=== PATIENT | female | born 1965 | race American Indian/Alaskan Native ===

== ENCOUNTER 2021-06-13 05:46 | Inpatient (IN) | payer SELFPAY ==
[2021-06-13] MEDS ORDERED: SODIUM CHLORIDE 0.9% 1000 ML 1,000 ML IV ONE ×2 (06:25→09:27)
[2021-06-13] MEDS ORDERED: ONDANSETRON 4 MG/2 ML INJ IV ONE ×2 (06:25→09:28)
[2021-06-13] MEDS ORDERED: MORPHINE 4 MG/1 ML INJ IV ONE (06:25)
[2021-06-13] MEDS ORDERED: FAMOTIDINE 20 MG/2 ML INJ IV ONE (06:38)
--- NOTE | 2021-06-13 06:42 | Emergency Department Report ---
ED Abdominal Pain HPI - General Chief Complaint: Abdominal Pain Stated Complaint: AB PAIN Time Seen by Provider: 06/13/21 06:04 Source: patient Mode of arrival: Ambulatory Limitations: No Limitations - History of Present Illness Initial Comments: 56-year-old postmenopausal female with no past medical history or previous abdominal surgeries presents to the hospital with complaints of 1 week of nausea, vomiting, and abdominal pain. Symptoms have been intermittent but worse at night. Last evening pain worsened at the right lower quadrant radiating to the back with intractable nausea, vomiting with some mild hematemesis. Patient states she also noticed blood upon wiping after urinating and is unsure if it is vaginal or urinary blood. Patient denies fever or diarrhea. Pain is currently 10/10 intensity worse with palpation and without alleviating factors and described as a fullness and tight feeling across her abdomen Severity scale (0 -10): 10 - Related Data Allergies Allergy/AdvReac Type Severity Reaction Status Date / Time No Known Allergies Allergy Verified 06/13/21 06:21 ED Review of Systems ROS: Stated complaint: AB PAIN Other details as noted in HPI Comment: All other systems reviewed and negative ED Past Medical Hx - Past Medical History Previous Medical History?: No - Surgical History Past Surgical History?: No - Social History Smoking Status: Never Smoker Substance Use Type: None ED Physical Exam - General Limitations: No Limitations - Other Other exam information: General: Moderate distress secondary to pain Head: Atraumatic Eyes: normal appearance ENT: Moist mucous membranes Neck: Normal appearance, no midline tenderness Chest: Clear to auscultation bilaterally CV: Regular rate and rhythm Abdomen: Soft, normal bowel sounds, greatest tenderness in the right upper quadrant but also tender in the right lower quadrant and epigastric area, nondistended, no rebound or guarding Back: Normal inspection Extremity: Normal inspection, full range of motion Neuro: Alert O x 3, no facial asymmetry, speech clear, no gross motor sensory deficit Psych: Appropriate behavior Skin: No rash ED Course Vital Signs 06/13/21 06/13/21 06/13/21 05:49 06:08 06:15 Temperature 98.9 F Pulse Rate 72 71 66 Respiratory 22 22 27 H Rate Blood Pressure 142/76 Blood Pressure [Left] O2 Sat by Pulse 100 99 100 Oximetry 06/13/21 06/13/21 06/13/21 06:17 06:31 06:45 Temperature 98.8 F Pulse Rate 67 99 H 71 Respiratory 30 H 31 H 15 Rate Blood Pressure 152/86 134/81 134/81 Blood Pressure 152/86 [Left] O2 Sat by Pulse 100 100 98 Oximetry 06/13/21 06/13/21 06/13/21 06:52 07:01 07:15 Temperature Pulse Rate 64 62 64 Respiratory 12 10 L 21 Rate Blood Pressure 140/74 140/74 Blood Pressure 134/81 [Left] O2 Sat by Pulse 100 96 98 Oximetry 06/13/21 06/13/21 06/13/21 07:31 07:45 08:11 Temperature Pulse Rate 70 68 Respiratory 18 13 Rate Blood Pressure 140/84 140/84 140/84 Blood Pressure [Left] O2 Sat by Pulse 97 97 94 Oximetry 06/13/21 06/13/21 06/13/21 08:15 08:31 08:45 Temperature Pulse Rate 62 63 62 Respiratory 12 14 16 Rate Blood Pressure 128/72 128/72 128/72 Blood Pressure [Left] O2 Sat by Pulse 94 91 94 Oximetry 06/13/21 09:01 Temperature Pulse Rate 59 L Respiratory 21 Rate Blood Pressure 131/77 Blood Pressure [Left] O2 Sat by Pulse 96 Oximetry - Reevaluation(s) Reevaluation #1: 06/13/21 09:50 I spoke to pt daughter in room and another daughter on the phone to explain current diagnosis and treatment. - Consultations Consultation #1: 06/13/21 09:41 Dr Grover surgeon consulted, will evaluate for possible cholecystectomy if pain continues. ED Medical Decision Making - Lab Data Result diagrams: 06/13/21 07:00 06/13/21 07:00 Lab Results 06/13/21 06/13/21 06/13/21 Range/Units 06:53 07:00 07:00 WBC 6.4 (4.5-11.0) K/mm3 RBC 4.43 (3.65-5.03) M/mm3 Hgb 12.2 (10.1-14.3) gm/dl Hct 38.0 (30.3-42.9) % MCV 86 (79-97) fl MCH 28 (28-32) pg MCHC 32 (30-34) % RDW 13.9 (13.2-15.2) % Plt Count 286 (140-440) K/mm3 Lymph % (Auto) 17.7 (13.4-35.0) % [place] % (Auto) 5.3 (0.0-7.3) % Eos % (Auto) 0.1 (0.0-4.3) % Baso % (Auto) 0.4 (0.0-1.8) % Lymph # (Auto) 1.1 L (1.2-5.4) K/mm3 [place] # (Auto) 0.3 (0.0-0.8) K/mm3 Eos # (Auto) 0.0 (0.0-0.4) K/mm3 Baso # (Auto) 0.0 (0.0-0.1) K/mm3 Seg Neutrophils % 76.5 H (40.0-70.0) % Seg Neutrophils # 4.9 (1.8-7.7) K/mm3 Sodium 141 (137-145) mmol/L Potassium 3.7 (3.6-5.0) mmol/L Chloride 103.8 (98-107) mmol/L Carbon Dioxide 23 (22-30) mmol/L Anion Gap 18 mmol/L BUN 9 (7-17) mg/dL Creatinine 0.8 (0.6-1.2) mg/dL Estimated GFR > 60 ml/min BUN/Creatinine Ratio 11 % Glucose 156 H (65-100) mg/dL Calcium 9.5 (8.4-10.2) mg/dL Total Bilirubin 0.20 (0.1-1.2) mg/dL AST 22 (5-40) units/L ALT 22 (7-56) units/L Alkaline Phosphatase 67 (35-129) units/L Total Protein 7.3 (6.3-8.2) g/dL Albumin 4.2 (3.9-5) g/dL Albumin/Globulin Ratio 1.4 % Lipase 28 (13-60) units/L Urine Color Straw (Yellow) Urine Turbidity Clear (Clear) Urine pH 9.0 H (5.0-7.0) Ur Specific [place] 1.010 (1.003-1.030) Urine Protein <15 mg/dl (Negative) mg/dL Urine Glucose (UA) 50 (Negative) mg/dL Urine Ketones Tr (Negative) mg/dL Urine Blood Mod (Negative) Urine Nitrite Neg (Negative) Urine Bilirubin Neg (Negative) Urine Urobilinogen < 2.0 (<2.0) mg/dL Ur Leukocyte Esterase Neg (Negative) Urine WBC (Auto) 1.0 (0.0-6.0) /HPF Urine RBC (Auto) 21.0 (0.0-6.0) /HPF U Epithel Cells (Auto) 1.0 (0-13.0) /HPF Urine Mucus Few /HPF - Radiology Data Radiology results: report reviewed CT ABDOMEN AND PELVIS WITH CONTRAST INDICATION: n,v right sided abd pain. TECHNIQUE: Axial CT images were obtained through the abdomen and pelvis after 100 cc Omni [address] scans at this location are performed using CT dose reduction for ALARA by means of automated exposure control. COMPARISON: None available. FINDINGS: LOWER CHEST: No significant abnormality. LIVER: Moderate decreased attenuation characteristic for steatosis GALLBLADDER: Multiple calcified gallstones BILE DUCTS: No significant abnormality. PANCREAS: No significant abnormality. SPLEEN: No significant abnormality. ADRENALS: No significant abnormality. RIGHT KIDNEY and URETER: No significant abnormality. LEFT KIDNEY and URETER: No significant abnormality. STOMACH and SMALL BOWEL: No significant abnormality. COLON: No significant abnormality. APPENDIX: Not visualized possibly absent. PERITONEUM: No free fluid. No free air. No fluid collection. LYMPH NODES: No significant adenopathy. AORTA and ARTERIES: No significant abnormality. IVC and VEINS: No significant abnormality. URINARY BLADDER: No significant abnormality. REPRODUCTIVE ORGANS: Several small left uterine hypodense lesions likely represent fibroids. ADDITIONAL FINDINGS: None. SKELETAL SYSTEM: No significant abnormality. IMPRESSION: 1. Cholelithiasis without CT evidence for cholecystitis. - Medical Decision Making 56-year-old female presents to the hospital complaints of right upper quadrant pain, nausea, and vomiting. ED work-up is consistent with cholelithiasis without cholecystitis. Patient is nontoxic-appearing but requires multiple doses of IV narcotics for pain control. Case discussed with general surgeon. Patient will be admitted to the hospital for pain control and possible cholecystectomy if symptoms continue. - Differential Diagnosis Renal colic, appendicitis, biliary colic, pancreatitis, gastritis Critical Care Time: No Critical care attestation.: If time is entered above; I have spent that time in minutes in the direct care of this critically ill patient, excluding procedure time. ED Disposition Clinical Impression: Biliary colic, Intractable abdominal pain, Nausea and vomiting Disposition: 09 ADMITTED INPATIENT Is pt being admited?: Yes Condition: Stable Instructions: Abdominal Pain (ED) Time of Disposition: 09:51
[2021-06-13] MEDS ORDERED: HYDROmorphone 1 MG/1 ML INJ IV ONE ×2 (07:29→09:27)
[2021-06-13 07:54] LABS: Alanine Aminotransferase 22 units/L (7-56); Albumin 4.2 g/dL (3.9-5); BUN/Creatinine Ratio 11; Blood Urea Nitrogen 9 mg/dL (7-17); Calcium 9.5 mg/dL (8.4-10.2); Hemolysis Index 2
[2021-06-13 07:55] LABS: Basophils % (Auto) 0.4 % (0.0-1.8); Eosinophils % (Auto) 0.1 % (0.0-4.3); Hemoglobin 12.2 gm/dl (10.1-14.3); Lymphocytes # (Auto) 1.1 K/mm3 (1.2-5.4); Lymphocytes % (Auto) 17.7 % (13.4-35.0); Mean Corpuscular HGB Conc 32 % (30-34); Mean Corpuscular Volume 86 fl (79-97); Monocytes # (Auto) 0.3 K/mm3 (0.0-0.8); Monocytes % (Auto) 5.3 % (0.0-7.3); Platelet Count 286 K/mm3 (140-440); Red Blood Count 4.43 M/mm3 (3.65-5.03); Red Cell Distribution Width 13.9 % (13.2-15.2)
[2021-06-13 08:01] LABS: Bilirubin,Urine NEG (Negative); Blood,Urine MOD (Negative); Color,Urine Straw (Yellow); Mucus,Urine FEW /HPF; Protein,Urine <15 mg/dL mg/dL (Negative); Urobilinogen,Urine < 2.0 mg/dL (<2.0)
--- NOTE | 2021-06-13 08:41 | Cat Scan Report ---
CT ABDOMEN AND PELVIS WITH CONTRAST INDICATION: n,v right sided abd pain. TECHNIQUE: Axial CT images were obtained through the abdomen and pelvis after 100 cc Omni [address] scans at this location are performed using CT dose reduction for ALARA by means of automated expos ure control. COMPARISON: None available. FINDINGS: LOWER CHEST: No significant abnormality. LIVER: Moderate decreased attenuation characteristic for steatosis GALLBLADDER: Multiple calcified gallstones BILE DUCTS: No significant abnormality. PANCREAS: No significant abnormality. SPLEEN: No significant abnormality. ADRENALS: No significant abnormality. RIGHT KIDNEY and URETER: No significant abnormality. LEFT KIDNEY and URETER: No significant abnormality. STOMACH and SMALL BOWEL: No significant abnormality. COLON: No significant abnormality. APPENDIX: Not visualized possibly absent. PERITONEUM: No free fluid. No free air. No fluid collection. LYMPH NODES: No significant adenopathy. AORTA and ARTERIES: No significant abnormality. IVC and VEINS: No significant abnormality. URINARY BLADDER: No significant abnormality. REPRODUCTIVE ORGANS: Several small left uterine hypodense lesions likely represent fibroids. ADDITIONAL FINDINGS: None. SKELETAL SYSTEM: No significant abnormality. IMPRESSION: 1. Cholelithiasis without CT evidence for cholecystitis. Signer Name: Juvencio Hoffman MD Signed: 06/13/2021 8:37 AM Workstation Name: [id number]
--- NOTE | 2021-06-13 09:51 | Consultation ---
History of Present Illness Consult date: 06/13/21 Reason for consult: abdominal pain - History of present illness History of present illness: 56-year-old postmenopausal female with no past medical history or previous abdominal surgeries presents to the hospital with complaints of 1 week of nausea, vomiting, and abdominal pain. Symptoms have been intermittent but worse at night. Last evening pain worsened at the right lower quadrant radiating to the back with intractable nausea, vomiting with some mild hematemesis. Patient states she also noticed blood upon wiping after urinating and is unsure if it is vaginal or urinary blood. Patient denies fever or diarrhea. Pain is currently 10/10 intensity worse with palpation and without alleviating factors and described as a fullness and tight feeling across her abdomen CT of the abdomen confirms cholelithiasis. It also shows 2 hypodense lesions in the uterus. This may be related to her vaginal bleeding. Pelvic ultrasound should be done and a COMMODITIES MANAGER consult would be appreciated. Medications and Allergies Allergies Allergy/AdvReac Type Severity Reaction Status Date / Time No Known Allergies Allergy Verified 06/13/21 06:21 Active Meds: Active Medications Sodium Chloride (Nacl 0.9% 1000 Ml) 1,000 mls @ 999 mls/hr IV BOLUS ONE Stop: 06/13/21 10:27 Exam Vital Signs Temp Pulse Resp BP Pulse Ox 98.9 F 72 22 142/76 100 06/13/21 05:49 06/13/21 05:49 06/13/21 05:49 06/13/21 05:49 06/13/21 05:49 Results - Labs 06/13/21 07:00 06/13/21 07:00 Abnormal lab results 06/13/21 06/13/21 06/13/21 Range/Units 06:53 07:00 07:00 Lymph # (Auto) 1.1 L (1.2-5.4) K/mm3 Seg Neutrophils % 76.5 H (40.0-70.0) % Glucose 156 H (65-100) mg/dL Urine pH 9.0 H (5.0-7.0) Diabetes panel 06/13/21 Range/Units 07:00 Sodium 141 (137-145) mmol/L Potassium 3.7 (3.6-5.0) mmol/L Chloride 103.8 (98-107) mmol/L Carbon Dioxide 23 (22-30) mmol/L BUN 9 (7-17) mg/dL Creatinine 0.8 (0.6-1.2) mg/dL Glucose 156 H (65-100) mg/dL Calcium 9.5 (8.4-10.2) mg/dL AST 22 (5-40) units/L ALT 22 (7-56) units/L Alkaline Phosphatase 67 (35-129) units/L Total Protein 7.3 (6.3-8.2) g/dL Albumin 4.2 (3.9-5) g/dL Calcium panel 06/13/21 Range/Units 07:00 Calcium 9.5 (8.4-10.2) mg/dL Albumin 4.2 (3.9-5) g/dL Pituitary panel 06/13/21 Range/Units 07:00 Sodium 141 (137-145) mmol/L Potassium 3.7 (3.6-5.0) mmol/L Chloride 103.8 (98-107) mmol/L Carbon Dioxide 23 (22-30) mmol/L BUN 9 (7-17) mg/dL Creatinine 0.8 (0.6-1.2) mg/dL Glucose 156 H (65-100) mg/dL Calcium 9.5 (8.4-10.2) mg/dL Adrenal panel 06/13/21 Range/Units 07:00 Sodium 141 (137-145) mmol/L Potassium 3.7 (3.6-5.0) mmol/L Chloride 103.8 (98-107) mmol/L Carbon Dioxide 23 (22-30) mmol/L BUN 9 (7-17) mg/dL Creatinine 0.8 (0.6-1.2) mg/dL Glucose 156 H (65-100) mg/dL Calcium 9.5 (8.4-10.2) mg/dL Total Bilirubin 0.20 (0.1-1.2) mg/dL AST 22 (5-40) units/L ALT 22 (7-56) units/L Alkaline Phosphatase 67 (35-129) units/L Total Protein 7.3 (6.3-8.2) g/dL Albumin 4.2 (3.9-5) g/dL Assessment and Plan Patient with the upper abdominal pain likely related to her cholelithiasis. Pain appears intractable to medical management with IV Dilaudid and morphine. Patient unable to eat anything at this time. Agree to admit for pain management IV fluids and n.p.o. CT of the abdomen confirms cholelithiasis. It also shows 2 hypodense lesions in the uterus. This may be related to her vaginal bleeding. Pelvic ultrasound should be done and a COMMODITIES MANAGER consult would be appreciated.
[2021-06-13] MEDS ORDERED: ONDANSETRON 4 MG/2 ML INJ IV PRN (10:52)
[2021-06-13] MEDS ORDERED: ACETAMINOPHEN 325 MG TAB PO PRN (10:52)
--- NOTE | 2021-06-13 10:52 | History and Physical Report ---
History of Present Illness Date of examination: 06/13/21 Date of admission: 06/13/21 Chief complaint: abd pain History of present illness: 56-year-old postmenopausal female with no past medical history or previous abdominal surgeries presents to the hospital with complaints of 1 week of nausea, vomiting, and abdominal pain. Symptoms have been intermittent but worse at night. Last evening pain worsened at the right lower quadrant radiating to the back with intractable nausea, vomiting with some mild hematemesis. Patient states she also noticed blood upon wiping after urinating and is unsure if it is vaginal or urinary blood. She reported severe abdominal pain prior to her visit to the emergency room but states that the pain has resolved now. CT of the abd omen confirms cholelithiasis. It also shows 2 hypodense lesions in the uterus. Past History Past Medical History: No medical history Past Surgical History: No surgical history Social history: no significant social history Family history: no significant family history Medications and Allergies Allergies Allergy/AdvReac Type Severity Reaction Status Date / Time No Known Allergies Allergy Verified 06/13/21 06:21 Review of Systems All systems: negative Exam - Constitutional Vitals: Temp Pulse Resp BP Pulse Ox 98.8 F 57 L 16 127/75 99 06/13/21 06:17 06/13/21 10:15 06/13/21 10:15 06/13/21 10:15 06/13/21 10:15 General appearance: Present: no acute distress, well-nourished - EENT Eyes: Present: PERRL ENT: hearing intact, clear oral mucosa - Neck Neck: Present: supple, normal ROM - Respiratory Respiratory effort: normal Respiratory: bilateral: CTA - Cardiovascular Heart Sounds: Present: S1 & S2. Absent: rub, click - Extremities Extremities: pulses symmetrical, No edema Peripheral Pulses: within normal limits - Abdominal General gastrointestinal: Present: soft, non-tender, non-distended, normal bowel sounds Female genitourinary: Present: normal - Integumentary Integumentary: Present: clear, warm, dry - Musculoskeletal Musculoskeletal: gait normal, strength equal bilaterally - Psychiatric Psychiatric: appropriate mood/affect, intact judgment & insight - Neurologic Neurologic: CNII-XII intact, moves all extremities Results - Labs CBC & Chem 7: 06/13/21 07:00 06/13/21 07:00 Labs: Laboratory Last Values WBC 6.4 K/mm3 (4.5-11.0) 06/13/21 07:00 RBC 4.43 M/mm3 (3.65-5.03) 06/13/21 07:00 Hgb 12.2 gm/dl (10.1-14.3) 06/13/21 07:00 Hct 38.0 % (30.3-42.9) 06/13/21 07:00 MCV 86 fl (79-97) 06/13/21 07:00 MCH 28 pg (28-32) 06/13/21 07:00 MCHC 32 % (30-34) 06/13/21 07:00 RDW 13.9 % (13.2-15.2) 06/13/21 07:00 Plt Count 286 K/mm3 (140-440) 06/13/21 07:00 Lymph % (Auto) 17.7 % (13.4-35.0) 06/13/21 07:00 [place] % (Auto) 5.3 % (0.0-7.3) 06/13/21 07:00 Eos % (Auto) 0.1 % (0.0-4.3) 06/13/21 07:00 Baso % (Auto) 0.4 % (0.0-1.8) 06/13/21 07:00 Lymph # (Auto) 1.1 K/mm3 (1.2-5.4) L 06/13/21 07:00 [place] # (Auto) 0.3 K/mm3 (0.0-0.8) 06/13/21 07:00 Eos # (Auto) 0.0 K/mm3 (0.0-0.4) 06/13/21 07:00 Baso # (Auto) 0.0 K/mm3 (0.0-0.1) 06/13/21 07:00 Seg Neutrophils % 76.5 % (40.0-70.0) H 06/13/21 07:00 Seg Neutrophils # 4.9 K/mm3 (1.8-7.7) 06/13/21 07:00 Sodium 141 mmol/L (137-145) 06/13/21 07:00 Potassium 3.7 mmol/L (3.6-5.0) 06/13/21 07:00 Chloride 103.8 mmol/L (98-107) 06/13/21 07:00 Carbon Dioxide 23 mmol/L (22-30) 06/13/21 07:00 Anion Gap 18 mmol/L 06/13/21 07:00 BUN 9 mg/dL (7-17) 06/13/21 07:00 Creatinine 0.8 mg/dL (0.6-1.2) 06/13/21 07:00 Estimated GFR > 60 ml/min 06/13/21 07:00 BUN/Creatinine Ratio 11 % 06/13/21 07:00 Glucose 156 mg/dL (65-100) H 06/13/21 07:00 Calcium 9.5 mg/dL (8.4-10.2) 06/13/21 07:00 Total Bilirubin 0.20 mg/dL (0.1-1.2) 06/13/21 07:00 AST 22 units/L (5-40) 06/13/21 07:00 ALT 22 units/L (7-56) 06/13/21 07:00 Alkaline Phosphatase 67 units/L (35-129) 06/13/21 07:00 Total Protein 7.3 g/dL (6.3-8.2) 06/13/21 07:00 Albumin 4.2 g/dL (3.9-5) 06/13/21 07:00 Albumin/Globulin Ratio 1.4 % 06/13/21 07:00 Lipase 28 units/L (13-60) 06/13/21 07:00 Urine Color Straw (Yellow) 06/13/21 06:53 Urine Turbidity Clear (Clear) 06/13/21 06:53 Urine pH 9.0 (5.0-7.0) H 06/13/21 06:53 Ur Specific [place] 1.010 (1.003-1.030) 06/13/21 06:53 Urine Protein <15 mg/dl mg/dL (Negative) 06/13/21 06:53 Urine Glucose (UA) 50 mg/dL (Negative) 06/13/21 06:53 Urine Ketones Tr mg/dL (Negative) 06/13/21 06:53 Urine Blood Mod (Negative) 06/13/21 06:53 Urine Nitrite Neg (Negative) 06/13/21 06:53 Urine Bilirubin Neg (Negative) 06/13/21 06:53 Urine Urobilinogen < 2.0 mg/dL (<2.0) 06/13/21 06:53 Ur Leukocyte Esterase Neg (Negative) 06/13/21 06:53 Urine WBC (Auto) 1.0 /HPF (0.0-6.0) 06/13/21 06:53 Urine RBC (Auto) 21.0 /HPF (0.0-6.0) 06/13/21 06:53 U Epithel Cells (Auto) 1.0 /HPF (0-13.0) 06/13/21 06:53 Urine Mucus Few /HPF 06/13/21 06:53 Assessment and Plan Assessment and plan: Cholelithiasis DUB. 06/13/2021. Patient with the upper abdominal pain likely related to her cholelithiasis. The patient's pain appears to be intractable. We will continue pain control with IV pain medications. Patient unable to eat anything at this time. We will admit for pain management IV fluids and n.p.o. Consult surgery for further evaluation. We will also consult TOE TRIMMER for 2 hypodense lesions in the uterus. Check pelvic ultrasound
[2021-06-13] MEDS: HYDROcodone/ACETAMINOPHEN 5-325 MG TAB PO PRN (14:15)
--- NOTE | 2021-06-13 15:45 | Ultrasound Report ---
EXAM: COMPLETE PELVIC ULTRASOUND, 06/13/2021 CLINICAL INFORMATION/INDICATION: Dysfunctional uterine bleeding. History of uterine fibroids. COMPARISON: CT of the abdomen and pelvis, 06/13/2021 FINDINGS: UTERUS: The uterus measures 8.8 x 4.6 x 5.3 cm. The endometrial complex measures a maximum of 9 mm. RIGHT ADNEXA: The right ovary measures 3.9 x 1.6 x 3.0 cm. Doppler flow is demonstrated to the right adnexal region. LEFT ADNEXA: The left ovary measures 2.9 x 1.1 x 2.6 cm. Doppler flow is demonstrated to the left adn exal region. FREE FLUID: No free pelvic fluid is identified. IMPRESSION: 1. No sonographic evidence of acute intrapelvic abnormality. 2. Hypodense lesion within the left body of the uterus seen on the recent CT of the abdomen and pelvi s is not reproduced on today's study. Signer Name: Kristi Barcenas MD Signed: 06/13/2021 3:41 PM Workstation Name: [id number]
[2021-06-13] MEDS ORDERED: SODIUM CHLORIDE 0.9% 1000 ML 1,000 ML IV SCH (17:15)
[2021-06-13] MEDS: HEPARIN 5,000 UNIT/1 ML VIAL SUB-Q SCH ×2 (17:35→21:58)
[2021-06-13] MEDS: MORPHINE 4 MG/1 ML INJ IV PRN (21:58)
[2021-06-14] MEDS: MORPHINE 4 MG/1 ML INJ IV PRN ×2 (02:58→21:26)
[2021-06-14 06:50] LABS: Basophils # (Auto) 0.1 K/mm3 (0.0-0.1); Basophils % (Auto) 0.8 % (0.0-1.8); Eosinophils % (Auto) 0.3 % (0.0-4.3); Hematocrit 39.6 % (30.3-42.9); Hemoglobin 12.9 gm/dl (10.1-14.3); Lymphocytes # (Auto) 1.4 K/mm3 (1.2-5.4); Lymphocytes % (Auto) 19.4 % (13.4-35.0); Mean Corpuscular HGB Conc 33 % (30-34); Mean Corpuscular Volume 85 fl (79-97); Monocytes # (Auto) 0.7 K/mm3 (0.0-0.8); Platelet Count 295 K/mm3 (140-440); Red Blood Count 4.68 M/mm3 (3.65-5.03); Red Cell Distribution Width 14.1 % (13.2-15.2)
[2021-06-14 07:02] LABS: Blood Urea Nitrogen 8 mg/dL (7-17); Calcium 8.6 mg/dL (8.4-10.2); Hemolysis Index 2
[2021-06-14 07:09] LABS: BUN/Creatinine Ratio 11
[2021-06-14] MEDS: HYDROcodone/ACETAMINOPHEN 5-325 MG TAB PO PRN (08:15)
--- NOTE | 2021-06-14 09:15 | Progress Note ---
Assessment and Plan Patient with the upper abdominal pain likely related to her cholelithiasis. Pain appears intractable to medical management with IV Dilaudid and morphine. Patient unable to eat anything at this time. Agree to admit for pain management IV fluids and n.p.o. CT of the abdomen confirms cholelithiasis. It also shows 2 hypodense lesions in the uterus. This may be related to her vaginal bleeding. Pelvic ultrasound should be done and a SIPHONER consult would be appreciated. Patient with continued pain despite being n.p.o. overnight. Discussed with patient surgical treatment for gallbladder disease. She agrees to proceed with a laparoscopic cholecystectomy today. Consent was signed and witnessed. Subjective Date of service: 06/14/21 Patient Reports: Positive: still having pain Narrative: Patient with continued pain despite being n.p.o. overnight. Discussed with patient surgical treatment for gallbladder disease. She agrees to proceed with a laparoscopic cholecystectomy today. Consent was signed and witnessed. Objective Vital Signs - 12hr 06/13/21 06/14/21 06/14/21 21:33 02:46 03:54 Temperature 98.7 F 98.4 F Pulse Rate 56 L 71 Respiratory 18 20 Rate Blood Pressure 141/75 143/75 O2 Sat by Pulse 98 100 100 Oximetry 06/14/21 04:18 Temperature 98.5 F Pulse Rate 66 Respiratory 18 Rate Blood Pressure 136/76 O2 Sat by Pulse 100 Oximetry - Labs 06/14/21 06:35 06/14/21 06:35 Diabetes panel 06/14/21 Range/Units 06:35 Sodium 138 (137-145) mmol/L Potassium 3.8 (3.6-5.0) mmol/L Chloride 100.3 (98-107) mmol/L Carbon Dioxide 26 (22-30) mmol/L BUN 8 (7-17) mg/dL Creatinine 0.7 (0.6-1.2) mg/dL Glucose 130 H (65-100) mg/dL Calcium 8.6 (8.4-10.2) mg/dL Calcium panel 06/14/21 Range/Units 06:35 Calcium 8.6 (8.4-10.2) mg/dL Pituitary panel 06/14/21 Range/Units 06:35 Sodium 138 (137-145) mmol/L Potassium 3.8 (3.6-5.0) mmol/L Chloride 100.3 (98-107) mmol/L Carbon Dioxide 26 (22-30) mmol/L BUN 8 (7-17) mg/dL Creatinine 0.7 (0.6-1.2) mg/dL Glucose 130 H (65-100) mg/dL Calcium 8.6 (8.4-10.2) mg/dL Adrenal panel 06/14/21 Range/Units 06:35 Sodium 138 (137-145) mmol/L Potassium 3.8 (3.6-5.0) mmol/L Chloride 100.3 (98-107) mmol/L Carbon Dioxide 26 (22-30) mmol/L BUN 8 (7-17) mg/dL Creatinine 0.7 (0.6-1.2) mg/dL Glucose 130 H (65-100) mg/dL Calcium 8.6 (8.4-10.2) mg/dL
--- NOTE | 2021-06-14 09:35 | Progress Note ---
Assessment and Plan Assessment and plan: Cholelithiasis DUB. 06/13/2021. Patient with the upper abdominal pain likely related to her cholelithiasis. The patient's pain appears to be intractable. We will continue pain control with IV pain medications. Patient unable to eat anything at this time. We will admit for pain management IV fluids and n.p.o. Consult surgery for further evaluation. We will also consult [employer] for 2 hypodense lesions in the uterus. Check pelvic ultrasound 06/14/2021. Patient for laparoscopic cholecystectomy today per surgery. Await [employer] evaluation. Pelvic ultrasound was found to be negative. Continue supportiv e care and pain control History Interval history: No new issues overnight. Hospitalist Physical - Constitutional Vitals: Temp Pulse Resp BP Pulse Ox 98.5 F 66 18 136/76 100 06/14/21 04:18 06/14/21 04:18 06/14/21 04:18 06/14/21 04:18 06/14/21 04:18 General appearance: Present: no acute distress, well-nourished - EENT Eyes: Present: PERRL, EOM intact ENT: hearing intact, clear oral mucosa, dentition normal - Neck Neck: Present: supple, normal ROM - Respiratory Respiratory effort: normal Respiratory: bilateral: CTA - Cardiovascular Rhythm: regular Heart Sounds: Present: S1 & S2. Absent: gallop, rub - Extremities Extremities: no ischemia, No edema, Full ROM - Abdominal General gastrointestinal: soft, non-tender, non-distended, normal bowel sounds - Integumentary Integumentary: Present: clear, warm, dry - Neurologic Neurologic: CNII-XII intact, moves all extremities Results - Labs CBC & Chem 7: 06/14/21 06:35 06/14/21 06:35 Labs: Laboratory Last Values WBC 7.3 K/mm3 (4.5-11.0) 06/14/21 06:35 RBC 4.68 M/mm3 (3.65-5.03) 06/14/21 06:35 Hgb 12.9 gm/dl (10.1-14.3) 06/14/21 06:35 Hct 39.6 % (30.3-42.9) 06/14/21 06:35 MCV 85 fl (79-97) 06/14/21 06:35 MCH 28 pg (28-32) 06/14/21 06:35 MCHC 33 % (30-34) 06/14/21 06:35 RDW 14.1 % (13.2-15.2) 06/14/21 06:35 Plt Count 295 K/mm3 (140-440) 06/14/21 06:35 Lymph % (Auto) 19.4 % (13.4-35.0) 06/14/21 06:35 [place] % (Auto) 10.0 % (0.0-7.3) H 06/14/21 06:35 Eos % (Auto) 0.3 % (0.0-4.3) 06/14/21 06:35 Baso % (Auto) 0.8 % (0.0-1.8) 06/14/21 06:35 Lymph # (Auto) 1.4 K/mm3 (1.2-5.4) 06/14/21 06:35 [place] # (Auto) 0.7 K/mm3 (0.0-0.8) 06/14/21 06:35 Eos # (Auto) 0.0 K/mm3 (0.0-0.4) 06/14/21 06:35 Baso # (Auto) 0.1 K/mm3 (0.0-0.1) 06/14/21 06:35 Seg Neutrophils % 69.5 % (40.0-70.0) 06/14/21 06:35 Seg Neutrophils # 5.1 K/mm3 (1.8-7.7) 06/14/21 06:35 Sodium 138 mmol/L (137-145) 06/14/21 06:35 Potassium 3.8 mmol/L (3.6-5.0) 06/14/21 06:35 Chloride 100.3 mmol/L (98-107) 06/14/21 06:35 Carbon Dioxide 26 mmol/L (22-30) 06/14/21 06:35 Anion Gap 16 mmol/L 06/14/21 06:35 BUN 8 mg/dL (7-17) 06/14/21 06:35 Creatinine 0.7 mg/dL (0.6-1.2) 06/14/21 06:35 Estimated GFR > 60 ml/min 06/14/21 06:35 BUN/Creatinine Ratio 11 % 06/14/21 06:35 Glucose 130 mg/dL (65-100) H 06/14/21 06:35 Calcium 8.6 mg/dL (8.4-10.2) 06/14/21 06:35 Total Bilirubin 0.20 mg/dL (0.1-1.2) 06/13/21 07:00 AST 22 units/L (5-40) 06/13/21 07:00 ALT 22 units/L (7-56) 06/13/21 07:00 Alkaline Phosphatase 67 units/L (35-129) 06/13/21 07:00 Total Protein 7.3 g/dL (6.3-8.2) 06/13/21 07:00 Albumin 4.2 g/dL (3.9-5) 06/13/21 07:00 Albumin/Globulin Ratio 1.4 % 06/13/21 07:00 Lipase 28 units/L (13-60) 06/13/21 07:00 Urine Color Straw (Yellow) 06/13/21 06:53 Urine Turbidity Clear (Clear) 06/13/21 06:53 Urine pH 9.0 (5.0-7.0) H 06/13/21 06:53 Ur Specific [place] 1.010 (1.003-1.030) 06/13/21 06:53 Urine Protein <15 mg/dl mg/dL (Negative) 06/13/21 06:53 Urine Glucose (UA) 50 mg/dL (Negative) 06/13/21 06:53 Urine Ketones Tr mg/dL (Negative) 06/13/21 06:53 Urine Blood Mod (Negative) 06/13/21 06:53 Urine Nitrite Neg (Negative) 06/13/21 06:53 Urine Bilirubin Neg (Negative) 06/13/21 06:53 Urine Urobilinogen < 2.0 mg/dL (<2.0) 06/13/21 06:53 Ur Leukocyte Esterase Neg (Negative) 06/13/21 06:53 Urine WBC (Auto) 1.0 /HPF (0.0-6.0) 06/13/21 06:53 Urine RBC (Auto) 21.0 /HPF (0.0-6.0) 06/13/21 06:53 U Epithel Cells (Auto) 1.0 /HPF (0-13.0) 06/13/21 06:53 Urine Mucus Few /HPF 06/13/21 06:53 [place]/IV: Voiding Method Toilet Active Medications - Current Medications Current Medications: Generic Name Dose Route Start Last Admin Trade Name Freq PRN Reason Stop Dose Admin Acetaminophen 650 mg 06/13/21 10:52 Acetaminophen 325 Mg Tab PO Q4H PRN Pain MILD(1-3)/Fever >100.5/RAYMUNDO Hydrocodone Bitart/Acetaminophen 2 each 06/13/21 10:52 06/14/21 08:15 Hydrocodone/Acetaminophen 5-325 Mg Tab PO 2 each Q6H PRN Administration Pain, Moderate (4-6) Heparin Sodium (Porcine) 5,000 unit 06/13/21 14:00 06/13/21 21:58 Heparin 5,000 Unit/1 Ml Vial SUB-Q Not Given Q8HR SALONI Sodium Chloride 1,000 mls @ 75 mls/hr 06/13/21 17:15 06/13/21 17:34 Nacl 0.9% 1000 Ml IV 75 mls/hr DIRECT SALONI Administration Morphine Sulfate 2 mg 06/13/21 10:52 06/14/21 02:58 Morphine 4 Mg/1 Ml Inj IV 2 mg Q4H PRN Administration Pain , Severe (7-10) Ondansetron HCl 4 mg 06/13/21 10:52 Ondansetron 4 Mg/2 Ml Inj IV Q8H PRN Nausea And Vomiting Sodium Chloride 10 ml 06/13/21 22:00 06/13/21 22:05 Sodium Chloride 0.9% 10 Ml Flush Syringe IV 10 ml BID SALONI Administration Sodium Chloride 10 ml 06/13/21 10:52 Sodium Chloride 0.9% 10 Ml Flush Syringe IV PRN PRN LINE FLUSH
[2021-06-14] MEDS: HEPARIN 5,000 UNIT/1 ML VIAL SUB-Q SCH ×2 (14:00→21:26)
[2021-06-14] MEDS ORDERED: ROCURONIUM 50 MG/5 ML INJ IV ONE (16:37)
[2021-06-14] MEDS ORDERED: HYDROmorphone 1 MG/1 ML INJ ONE (16:37)
[2021-06-14] MEDS ORDERED: LIDOCAINE MPF (2%) 20 MG/1 ML VIAL 5 ML ONE (16:37)
[2021-06-14] MEDS ORDERED: propofoL 200 MG/20 ML VIAL IV ONE (16:37)
[2021-06-14] MEDS ORDERED: MIDAZOLAM 2 MG/2 ML INJ ONE (16:45)
[2021-06-14] MEDS ORDERED: BUPIVACAINE/PF (0.5%) 5 MG/1 ML 30 ML VIAL INFILTRATI ONE ×2 (16:46→17:38)
[2021-06-14] MEDS ORDERED: LIDOCAINE (1%) 10 MG/1 ML VIAL 20 ML MDV ONE (16:47)
[2021-06-14] MEDS ORDERED: LACTATED RINGERS 1,000 ML ONE ×2 (17:26→18:03)
[2021-06-14] MEDS ORDERED: ceFAZolin 1 GM VIAL ONE (17:26)
--- NOTE | 2021-06-14 17:28 | Anesthesia Day of Surgery ---
Anesthesia Day of Surgery - Day of Surgery Patient Examined: Yes Patient H&P Reviewed: Yes Patient is NPO: Yes
--- NOTE | 2021-06-14 17:28 | Anesthesia Consultation ---
Anesthesia Consult and Med Hx Date of service: 06/14/21 - Airway Anesthetic Teeth Evaluation: Good ROM Head & Neck: Adequate Mental/Hyoid Distance: Adequate Mallampati Class: Class III Intubation Access Assessment: Possibly Difficult - Pre-Operative Health Status ASA Pre-Surgery Classification: ASA1 Proposed Anesthetic Plan: General - Pulmonary Hx Smoking: No Hx Respiratory Symptoms: No - Cardiovascular System Hx Hypertension: No - Central Nervous System CVA: No - Endocrine Hx Renal Disease: No Hx Liver Disease: No Hx Insulin Dependent Diabetes: No Hx Non-Insulin Dependent Diabetes: No Hx Thyroid Disease: No - Other Systems Hx Obesity: No - Additional Comments Anesthesia Medical History Comments: No prior GA. No FHx anesthetic complications.
[2021-06-14] MEDS ORDERED: LIDOCAINE (1%) 10 MG/1 ML VIAL 20 ML MDV INFILTRATI ONE (17:38)
[2021-06-14] MEDS ORDERED: WATER FOR IRRIG STERILE 1,500 ML BOTTLE IR ONE (17:39)
[2021-06-14] MEDS ORDERED: ONDANSETRON 4 MG/2 ML INJ ONE (18:06)
[2021-06-14] MEDS ORDERED: NEOSTIGMINE 10MG/10 ML INJ MDV ONE (18:07)
[2021-06-14] MEDS ORDERED: GLYCOPYRROLATE 0.4 MG/2 ML INJ ONE (18:07)
[2021-06-14] MEDS ORDERED: HYDROmorphone 1 MG/1 ML INJ IV PRN (18:12)
[2021-06-14] MEDS ORDERED: SODIUM CHLORIDE 0.9% IRRIG SOLN 2000 ML IR ONE (18:13)
--- NOTE | 2021-06-14 18:34 | Operative Report ---
Operative Report Operative Report: Date: 06/15/2019 Preop diagnosis: cholecystitis with cholelithiasis Postop diagnosis: same Procedure: Laparoscopic cholecystectomy without cholangiogram Surgeon: Dr. Grover Order To Delivery Supervisor: Dr. Lockhart Anesthesia type: General endotracheal anesthesia Estimated blood loss: 20 cc Specimen: Gallbladder and stone Procedure: Patient is taken to the OR and after timeout are completed the abdomen was prepped with ChloraPrep and draped in a sterile fashion. A varies needle is used to gain access to the peritoneal cavity in the left upper quadrant abdomen is insufflated with CO2. A 5 mm incision is made in the supraumbilical area. A 5 mm Visiport is used to gain access to the peritoneal cavity. 2 additional 5 mm ports were placed one in the right lateral subcostal position and one in a right upper quadrant. In the subxiphoid position a 12 mm port is placed. The abdomen is tense and inflamed a needle aspirator is used to aspirate 30 cc of serous to bilious fluid. Gallbladder graspers are used through the right subcostal ports. Adhesions over the top of the liver on the right side are noted. The gallbladder was retracted superiorly anteriorly and laterally. The peritoneal reflection and adventitia are dissected with a harmonic scalpel to expose the cystic duct and cystic artery as well as the cystic cleft. Critical view of safety is demonstrated. The cystic artery is clipped and divided. A clip was placed on the cystic duct at its junction with the gallbladder. 3 clips were placed on the distal cystic duct. The cystic duct was then divided. 2 clips were placed on the cystic artery and then the cystic artery is divided. The gallbladder was dissected off the gallbladder fossa It was then extracted after being placed in a specimen bag through the subxiphoid port. Hemostasis is good as and is improved with the electrocautery hook. The right upper quadrant irrigated with copious amounts of saline and then aspirated. Sponge and needle counts are noted to be correct at this time. Surgicel gauze is placed into the gallbladder fossa. A SpinGo system was used to close the subxiphoid incision with an 0 Vicryl suture. The skin is closed with 4-0 Monocryl and Dermabond. Patient tolerated procedure well.
[2021-06-15] MEDS: HEPARIN 5,000 UNIT/1 ML VIAL SUB-Q SCH (05:54)
[2021-06-15] MEDS: HYDROcodone/ACETAMINOPHEN 5-325 MG TAB PO PRN (08:48)
[2021-06-15 11:23] VITALS: BP 104/55
--- NOTE | 2021-06-15 12:40 | Discharge Summary ---
Providers - Providers Date of Admission: 06/13/21 10:52 Date of discharge: 06/15/21 Attending physician: CHRISTIANO READ 06/13/21 09:38 Consult to Physician [CONS] Urgent Comment: Consulting Provider: JOHN GROVER Physician Instructions: Reason For Exam: bilary colic, intractible pain,nausea and vomiting 06/13/21 11:01 Consult to Physician [CONS] Routine Comment: Consulting Provider: FREDRICK PAPPAS Physician Instructions: Reason For Exam: DUB Primary care physician: RUDY BARTH Hospitalization Condition: Stable Procedures: Laparoscopic cholecystectomy without cholangiogram Disposition: HOME / SELF CARE / HOMELESS Final Discharge Diagnosis (Prints w/discharge instructions): Acute cholecystitis. Cholelithiasis. Status post lap cholecystectomy without cholangiogram Time spent for discharge: 35 minutes Core Measure Documentation - Palliative Care Palliative Care/ Comfort Measures: Not Applicable - Core Measures Any of the following diagnoses?: none Exam - Constitutional Vitals: Temp Pulse Resp BP Pulse Ox 98.7 F 72 16 104/55 95 06/15/21 12:07 06/15/21 12:07 06/15/21 12:07 06/15/21 12:07 06/15/21 11:22 General appearance: Present: no acute distress, well-nourished - EENT Eyes: Present: PERRL, EOM intact - Neck Neck: Present: supple, normal ROM - Respiratory Respiratory effort: normal Respiratory: bilateral: diminished, negative: rales, rhonchi, wheezing - Cardiovascular Rhythm: regular Heart Sounds: Present: S1 & S2 - Extremities Extremities: no ischemia, No edema - Abdominal General gastrointestinal: Present: soft, non-tender, non-distended, normal bowel sounds - Integumentary Integumentary: Present: clear, warm - Musculoskeletal Musculoskeletal: strength equal bilaterally, generalized weakness - Psychiatric Psychiatric: appropriate mood/affect, cooperative - Neurologic Neurologic: CNII-XII intact, moves all extremities Plan Diet: regular Additional Instructions: If you have worsening symptoms contact MD or go to the nearest emergency room. Advised to follow-up with general surgeon Dr. Grover in 1 week. Advised to follow-up with primary care physician within 1 week Follow up with: RUDY BARTH MD [Primary Care Provider] - 3-5 Days JOHN GROVER MD [Staff Physician] - 06/21/21 Prescriptions: Famotidine [Pepcid] 20 mg PO BID #20 tablet oxyCODONE /ACETAMINOPHEN [Percocet 5/325] 1 tab PO Q6HR PRN #15 tablet PRN Reason: Pain
--- NOTE | 2021-06-15 13:25 | Post Anesthesia Evaluation ---
- Post Anesthesia Evaluation Patient Participated: Yes Airway Patent: Yes Stable Respiratory Function: Yes Nausea/Vomiting: No Temp > 96.8F: Yes Pain Manageable: Yes Adequeate Hydration: Yes Anesthesia Complications: No Block Receding Appropriately: Not Applicable Patient on Ventilator: No
== END 2021-06-15 16:00 | disposition home or self-care (01) | DRG 419 ==
LOC: ED 05:46 → 3A 10:52
PROVIDERS: ADMIT Hospitalist; ATTEND Internal Medicine
PROC: 0FT44ZZ Resection of Gallbladder, Percutaneous Endoscopic Approach (ICD-10-PCS; principal; 2021-06-14)
DX: K80.00 Calculus of gallbladder with acute cholecystitis without obstruction (principal)
CPT/HCPCS: 36415; 74177; 76856; 80048; 80053; 81001; 83690; 85025; 88304; G0378; J1815; J3490; J7120; Q0162; J0690; J1170; J1644; J2250; J2270; J2405; J2704; J2710; J7030; Q9967